=== PATIENT | male | born 1965 | race Caucasian/White ===

== ENCOUNTER 2016-07-27 16:48 | Emergency (ER) | payer SELFPAY ==
[~2016-07-27] VITALS: Ht 188 cm; Wt 102.1 kg
[2016-07-27 17:20] VITALS: BP 139/85
--- NOTE | 2016-07-27 17:59 | PHYS DOC ---
Past Medical History Past Medical History: Other Additional Past Medical Histor: "born with only one kidney" Past Surgical History: Other Additional Past Surgical Histo: elbow Alcohol Use: Occasionally Drug Use: None Adult General Chief Complaint Chief Complaint: INSECT BITE HPI HPI Patient is a 50 year old who presents with pain in L buttock. Patient reports since yesterday morning he has been having pain and redness at a spot in his L buttock. He wonders if he was bitten by a spider as his girlfriend recently killed a spider in the bedroom. The pain has continued to increase today. No clear mitigating factors. No prior similar episodes. Review of Systems Review of Systems Constitutional: Denies fever or chills Eyes: Denies change in visual acuity or eye pain HENT: Denies nasal congestion or sore throat Respiratory: Denies cough or shortness of breath Cardiovascular: Denies chest pain GI: Denies abdominal pain, nausea, vomiting, bloody stools or diarrhea : Denies dysuria or hematuria Musculoskeletal: Denies back pain or joint pain Integument: Pain, redness in L buttock Neurologic: Denies headache, focal weakness or sensory changes Current Medications Current Medications Current Medications Medications (Trade) Dose Ordered Sig/Magalys Start Time Stop Time Status Last Admin Dose Admin Acetaminophen/ Hydrocodone Bitart (Lortab 5/325) 2 tab 1X ONCE 07/27/16 18:15 07/27/16 18:16 DC 07/27/16 18:23 2 TAB Cephalexin HCl (Keflex) 500 mg 1X ONCE 07/27/16 18:15 07/27/16 18:16 DC 07/27/16 18:23 500 MG Doxycycline Hyclate (Vibra-Tab) 100 mg 1X ONCE 07/27/16 18:15 07/27/16 18:16 DC 07/27/16 18:22 100 MG Lidocaine/Sodium Bicarbonate (Buffered Lidocaine 1%) 20 ml 1X ONCE 07/27/16 18:15 07/27/16 18:16 DC 07/27/16 18:23 20 ML Allergies Allergies Allergies Coded Allergies Type Severity Reaction Last Updated Verified No Known Drug Allergies 07/27/16 No Physical Exam Physical Exam Constitutional: Well developed, well nourished, no acute distress, non-toxic appearance HENT: Normocephalic, atraumatic, bilateral external ears normal Eyes: EOMI, conjunctiva normal, no discharge Neck: Normal range of motion, no stridor Cardiovascular: Heart rate normal, regular rhythm, no murmur Lungs & Thorax: Bilateral breath sounds clear to auscultation Abdomen: Bowel sounds normal, soft, non-distended, no TTP Skin: Warm, dry. Area of cellulitis/abscess to superior L buttock; central induration; markedly TTP Extremities: No obvious deformity, no edema Neurologic: Alert and oriented X 3, no gross deficits noted Current Patient Data Vital Signs Vital Signs Date Time Temp Pulse Resp B/P Pulse Ox O2 Delivery O2 Flow Rate FiO2 07/27/16 17:20 98.3 88 16 139/85 98 Room Air 98.3 EKG EKG [] Radiology/Procedures Radiology/Procedures [] Course & Med Decision Making Course & Med Decision Making Pertinent Labs and Imaging studies reviewed. (See chart for details) Patient is 50 year old male who presents with pain in L buttock. Apparent abscess/cellulitis. Oral pain medication ordered for pain control. I&D performed with small amount of pus expressed. As patient has only one kidney ( congenital), I spoke with the pharmacist to discuss possible kidney-friendly abx regimen. Will treat with both cephalexin/doxycycline to cover both staph and strep. Discussed need for patient to follow up in two day for recheck. Patient discharged with rx for pain meds, abx, instructions for follow up, return precautions. Dragon Disclaimer Dragon Disclaimer This electronic medical record was generated, in whole or in part, using a voice recognition dictation system. Departure Departure Impression: Primary Impression: Abscess of buttock, left Disposition: 01 HOME, SELF-CARE Condition: STABLE Patient Instructions: Abscess Additional Instructions: Thank you for allowing us to provide care today in the Emergency Department. Take the provided medication as directed. Use after taking the pain medication as it can make you drowsy. Be sure to take the full course of antibiotics. You will need to be reevaluated in 2 days. You can see your primary care physician, go to urgent care, or return to the Emergency Department. Return promptly to the Emergency Department if you develop any new or concerning symptoms. Scripts Doxycycline Hyclate 100 Mg Tablet1 Tab PO BID #20 TAB Prov:MIKEY ANDREW MD 07/27/16 Cephalexin 500 Mg Tablet1 Tab PO QID #40 TAB Prov:MIKEY ANDREW MD 07/27/16 Hydrocodone/Apap 10-325 ([place] 10-325 Tablet)1 Each Tablet1 Tab PO PRN Q6HRS PRN PAIN #15 TAB Ref 0 Prov:MIKEY ANDREW MD 07/27/16 PROCEDURE Procedure Indication: abscess Procedure: The patient was positioned appropriately. Local anesthesia was achieved with 1% lidocaine injection. An incision was then made over the apex of the lesion and 2ml bloody purulent material was expressed. The drainage cavity was packed with short strip of sterile gauze. The patient tolerated the procedure well. Complications: none. MIKEY ANDREW MD Jul 27, 2016 17:59
[2016-07-27] MEDS ORDERED: LIDOCAINE 1% / SOD BICARB 8.4% 20 ML VIAL. IJ ONE (18:15)
[2016-07-27] MEDS ORDERED: HYDROCODONE/APAP 5/325MG TABLET. PO ONE (18:15)
[2016-07-27] MEDS ORDERED: CEPHALEXIN 250 MG CAPSULE PO ONE (18:15)
[2016-07-27] MEDS ORDERED: DOXYCYCLINE HYCLATE 100 MG TABLET PO ONE (18:15)
[2016-07-27] MEDS ORDERED: DOXY100T PO (19:27)
[2016-07-27] MEDS ORDERED: HYDR-963 PO (19:27)
[2016-07-27] MEDS ORDERED: CEPH500T PO (19:27)
== END 2016-07-27 19:34 | disposition home or self-care (01) ==
LOC: ER 16:48
DX: L02.31 Cutaneous abscess of buttock (principal)
CPT/HCPCS: 10060; 99284-25

== ENCOUNTER 2019-04-25 04:06 | Emergency (ER) | payer SELFPAY ==
[~2019-04-25] VITALS: Ht 185.4 cm; Wt 104.8 kg
[~2019-04-25 04:06] MED LIST: CEPH500T PO; DOXY100T PO; HYDR-3135 PO
[2019-04-25 05:38] VITALS: BP 168/83
--- NOTE | 2019-04-25 05:48 | PHYS DOC ---
Past Medical History Past Medical History: Hypertension, Other Additional Past Medical Histor: "born with only one kidney"chronic hip pain Past Surgical History: Other Additional Past Surgical Histo: elbow Alcohol Use: Occasionally Drug Use: None Adult General Chief Complaint Chief Complaint: HIP PAIN HPI HPI She is a 53-year-old male who presents with mounted police, in custody, with report of left hip pain. Patient states that he had been walking on his hip for quite some time. She states that during that time he had fallen onto his hip and had managed to walk another 0.4 miles until he got to his girlfriend's house. Patient reportedly has a restraining order but he was not able to move once he got there, laid down on the bed, and fell asleep. At that point patient was reportedly arrested and was brought here for further evaluation of his left hip pain. Patient does admit to chronic left hip pain and has been told that he needs surgery on that hip.[] Review of Systems Review of Systems Constitutional: Denies fever or chills [] Respiratory: Denies cough or shortness of breath [] Cardiovascular: No additional information not addressed in HPI [] Musculoskeletal: Complains of left hip pain [] Integument: Denies rash or skin lesions [] Allergies Allergies Allergies Coded Allergies Type Severity Reaction Last Updated Verified No Known Drug Allergies 07/27/16 No Physical Exam Physical Exam Constitutional: Well developed, well nourished, no acute distress, non-toxic appearance. [] Cardiovascular: Regular rate and rhythm[] Lungs & Thorax: Bilateral breath sounds clear to auscultation [] Extremities: Examination of left hip demonstrates no shortening or rotation. Patient does report to pain on rotation and flexion of hip. [] Neurologic: Alert and oriented X 3, no focal deficits noted. [] Current Patient Data Vital Signs Vital Signs Date Time Temp Pulse Resp B/P (MAP) Pulse Ox O2 Delivery O2 Flow Rate FiO2 04/25/19 04:10 97.7 101 20 142/89 (106) 97 Room Air 97.7 EKG EKG [] Radiology/Procedures Radiology/Procedures [] Impressions: X-ray of the left hip demonstrates no acute bony abnormalities. There do appear to be some bone islands consistent with possible AVN. Course & Med Decision Making Course & Med Decision Making Pertinent Labs and Imaging studies reviewed. (See chart for details) [] Dragon Disclaimer Dragon Disclaimer This electronic medical record was generated, in whole or in part, using a voice recognition dictation system. Departure Departure Impression: Primary Impression: Chronic left hip pain Disposition: 01 HOME, SELF-CARE Condition: STABLE Referrals: ABDULKADIR SHANNON MD (PCP) Patient Instructions: Hip Pain CLAUDIA BOSCH Jr., DO Apr 25, 2019 05:48
[2019-04-25] MEDS ORDERED: ACETAMINOPHEN 500 MG TABLET PO ONE (06:15)
--- NOTE | 2019-04-25 08:06 | RAD ---
HIP LEFT 2V WITH PELVIS History: Fall Comparison: None. Findings: AP view of the pelvis and 2 additional views of the left hip are submitted. There is sclerosis and lucency of the left femoral head with mild flattening of the superior margin. There is left hip joint space narrowing. Sacroiliac joints are symmetric in appearance. No left femoral neck fracture is identified by radiographs. Impression: 1. There is sclerosis and lucency of somewhat flattened superior femoral head concerning for avascular necrosis. There is osteoarthritic change of the left hip. Electronically signed by: Tyron Louise MD (04/25/2019 8:03 AM) [facility]
== END 2019-04-25 06:00 | disposition home or self-care (01) ==
LOC: EEVIPCON 04:06 → ER 04:06
DX: G89.29 Other chronic pain (principal); M25.552 Pain in left hip; I10 Essential (primary) hypertension
CPT/HCPCS: 73502; 99284